=== PATIENT | male | born 1985 | race Caucasian/White ===

== ENCOUNTER 2018-03-10 22:11 | Emergency (ER) | payer SELFPAY ==
[2018-03-10 22:21] VITALS: BP 134/80; PULSE 80; RESP 18; TEMP 97.4; O2SAT 96
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
[2018-03-11] MEDS ORDERED: chlordiazePOXIDE 25 MG CAP PO ONE (06:15)
[2018-03-11] MEDS ORDERED: ONDANSETRON HCL 4 MG/2 ML VIAL IM ONE (06:15)
[2018-03-11 06:41] VITALS: BP 130/63; PULSE 98; RESP 17; O2SAT 89
[2018-03-11] MEDS ORDERED: LORazepam 2 MG/ML VIAL IV PUSH PRN ×4 (06:45)
[2018-03-11] MEDS ORDERED: LORazepam 1 MG TAB PO PRN (06:45)
[2018-03-11] MEDS ORDERED: FLUMAZENIL 0.5 MG/5 ML VIAL IV PUSH PRN (06:45)
[2018-03-11] MEDS ORDERED: LORazepam 2 MG TAB PO PRN (06:45)
[2018-03-11] MEDS ORDERED: ONDANSETRON HCL 4 MG/2 ML VIAL IV PUSH PRN (06:45)
[2018-03-11 07:42] VITALS: BP 134/82; PULSE 86; RESP 16; O2SAT 95
[2018-03-11 12:05] VITALS: BP 123/74; PULSE 98; RESP 17; O2SAT 99
--- NOTE | 2018-03-11 13:03 | PD ---
Physical Exam Time Seen by Provider: 13:03 Narrative Patient is clinically sober and is not ambulating in the hallway without difficulty. He is ready for an asking to be discharged. He denies suicidal or homicidal ideations. Data Data Last Documented VS Vital Signs Date Time Temp Pulse Resp B/P (MAP) Pulse Ox O2 Delivery O2 Flow Rate FiO2 03/11/18 12:05 98 17 123/74 (90) 99 Nasal Cannula 2.00 03/10/18 22:21 97.4 Orders Orders Alcohol (Ethanol) (03/11/18 02:11) Chlordiazepoxide (Librium) (03/11/18 06:15) Ondansetron Inj (Zofran Inj) (03/11/18 06:15) Alcohol Withdrawal Asmt-Ciwa ONCE (03/11/18 06:33) Ondansetron Inj (Zofran Inj) (03/11/18 06:45) Flumazenil Inj (Romazicon Inj) (03/11/18 06:45) Lorazepam (Ativan) (03/11/18 06:45) Lorazepam Inj (Ativan Inj) (03/11/18 06:45) Lorazepam (Ativan) (03/11/18 06:45) Lorazepam Inj (Ativan Inj) (03/11/18 06:45) Lorazepam Inj (Ativan Inj) (03/11/18 06:45) Lorazepam Inj (Ativan Inj) (03/11/18 06:45) Iv Access Insert/Monitor (03/11/18 06:33) Diet Regular Basic (03/11/18 Breakfast) Ed Discharge Order (03/11/18 13:03) Labs Laboratory Tests Test 03/11/18 02:15 Ethyl Alcohol Level 302 MG/DL [facility] Supervised Visit with RIK: No Narrative Course Patient is clinically sober and is not ambulating in the hallway without difficulty. He is ready for an asking to be discharged. He denies suicidal or homicidal ideations. Denies history of suicidal ideations. I do not feel the patient is a threat to himself or others and I canceled the psychiatric screen. He does not want to talk to a psychiatrist. Patient will be provided information for [facility] for follow-up if he is interested in detox. Patient was medically cleared by alternate provider. Patient cleared for discharge. Diagnosis Primary Impression: Acute alcohol intoxication Qualified Codes: F10.929 - Alcohol use, unspecified with intoxication, unspecified Referrals: [facility] 1 day Patient Instructions: General Instructions, Alcohol Intoxication (ED), Abuse of Alcohol (ED) Departure Forms: Tests/Procedures Additional Instruction: Follow-up with Ty Wade Drink more water, drink less alcohol Return to emergency department for any new or worsening symptoms Med/Other Pt SpecificInfo: No Change to Meds, No Meds Exist/No RX given Scripts No Active Prescriptions or Reported Meds Disposition: 01 DISCHARGE HOME Condition: Stable Karoline Solorzano Mar 11, 2018 13:03
== END 2018-03-11 13:23 | disposition home or self-care (01) ==
LOC: NEPD 22:11
DX: F10.129 Alcohol abuse with intoxication, unspecified (principal); F17.210 Nicotine dependence, cigarettes, uncomplicated; F14.10 Cocaine abuse, uncomplicated; F12.10 Cannabis abuse, uncomplicated; Y90.8 Blood alcohol level of 240 mg/100 ml or more; Y92.480 Sidewalk as the place of occurrence of the external cause
CPT/HCPCS: 80307; 96372; 96374; 96375; 99284; J2060; J2405

== ENCOUNTER 2018-03-13 10:34 | Emergency (ER) | payer SELFPAY ==
[2018-03-13 11:04] VITALS: BP 158/85; PULSE 76; TEMP 98; O2SAT 97
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
[2018-03-13 14:57] VITALS: BP 129/71; PULSE 94; RESP 16; TEMP 98.7; O2SAT 99
--- NOTE | 2018-03-13 16:24 | PD ---
Physical Exam Time Seen by Provider: 16:22 Narrative ANSHUL Gallo has evaluated patient, lifted the Moran act and cleared the patient for discharge. Data Data Last Documented VS Vital Signs Date Time Temp Pulse Resp B/P (MAP) Pulse Ox O2 Delivery O2 Flow Rate FiO2 03/13/18 14:57 98.7 94 16 129/71 (90) 99 Room Air Orders Orders Diet Regular Basic (03/13/18 Lunch) Diet Regular Basic (03/13/18 Dinner) MDM Supervised Visit with RIK: No Narrative Course ANSHUL Gallo has evaluated patient, lifted the Moran act and cleared the patient for discharge. Patient contracts safety. Denies suicidal or homicidal ideations. Patient will be provided community resource packet to [facility] for follow-up. Has friends and family for support. Patient was medically cleared by alternate provider prior to psych screening. Patient has been evaluated by psychiatry and and is now cleared for discharge. Diagnosis Primary Impression: Alcohol-induced mood disorder Referrals: [facility] (Out patient) [facility] Primary Care Physician Psychiatrist [facility] Patient Instructions: Abuse of Alcohol (ED), Alcohol Dependence (ED), Alcohol Intoxication (ED), General Instructions, Mood Disorders (ED) Additional Instruction: Contract safety to your self and others Stop drinking alcohol Follow-up with psychiatry Follow-up with primary care provider Follow-up with Ty Al Return to the emergency department immediately with worsening of symptoms Med/Other Pt SpecificInfo: No Change to Meds, No Meds Exist/No RX given Scripts No Active Prescriptions or Reported Meds Disposition: 01 DISCHARGE HOME Condition: Stable Karoline Solorzano Mar 13, 2018 16:24
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
== END 2018-03-13 16:59 | disposition home or self-care (01) ==
LOC: NEDAMB 10:34 → NEPJ 16:59
DX: F10.220 Alcohol dependence with intoxication, uncomplicated (principal); F12.90 Cannabis use, unspecified, uncomplicated; F14.90 Cocaine use, unspecified, uncomplicated; Z72.0 Tobacco use
CPT/HCPCS: 99283